=== PATIENT | male | born 1995 | race Two or more races ===

== ENCOUNTER 2019-04-01 17:49 | Emergency (ER) | payer MEDICAID ==
[~2019-04-01] VITALS: Ht 190.5 cm; Wt 90.7 kg
--- NOTE | 2019-04-01 18:04 | NUR ---
ED Nurse Note: PT WALKED IN TO ER TODAY FROM HOME. AOX4. PT C/O ABDOMINAL "DISCOMFORT" AND NAUSEA X 1 WEEK AGO AND STATES HE IS UNABLE TO EAT OR DRINK DUE TO DISCOMFORT. PT ALSO STATES HE FEELS "CONFUSED" ALMOST LIKE HE IS "OUTSIDE OF HIS BODY." PT DENIES ALCOHOL OR DRUG USE. PT DENIES PAIN, VOMITING OR DIARRHEA. ACTIVE BOWEL SOUNDS IN ALL QUADRANTS. ABDOMEN NONDISTENDED AND NONTENDER TO PALPATION. LAST BM X 2 DAYS AGO.
[2019-04-01] MEDS ORDERED: Isovue-300 100ml vial INJ PRN (18:15)
[2019-04-01] MEDS ORDERED: Pantoprazole Inj IV ONE (18:15)
[2019-04-01 18:16] VITALS: BP 134/72
--- NOTE | 2019-04-01 18:24 | Emergency Room Report ---
History of Present Illness General Chief Complaint: Abdominal Pain Source: Patient Present Illness HPI Patient presents emergency department today complaining of abdominal pain that is been going on for several days. Patient states that he was seen at [facility] emergency department where he had laboratory work-up was told everything was fine except that his heart rate was low he was discharged. He does not know what diagnosis he was given. He was referred for outpatient ultrasound by his primary care physician. He states that he is not getting that ultrasound in his abdomen for at least 3 days. Because of the persistence of the pain he cannot tolerate anymore. He came here for further evaluation. Patient had episodes of nausea vomiting states that he is unable to tolerate any p.o. States that whenever he eats or drinks he has significant abdominal discomfort. Denies any dysuria urinary frequency. States that he is also constipated. No other complaints are noted. Symptoms noted to be moderate to severe. Patient is never had episodes of this before. Denies any alcohol drug or tobacco use. No other modifying factors. No other associated signs and symptoms. No other complaints were noted. Allergies: Coded Allergies: No Known Allergies (Unverified , 04/01/19) Patient History Past Medical History: none Past Surgical History: none Pertinent Family History: none Social History: Denies: smoking, alcohol use, drug use Reviewed Nursing Documentation: PMH: Agreed; PSxH: Agreed Nursing Documentation-PMH Past Medical History: No Stated History Review of Systems All Other Systems: negative except mentioned in HPI Physical Exam Vital Signs Date Time Temp Pulse Resp B/P (MAP) Pulse Ox O2 Delivery O2 Flow Rate FiO2 04/01/19 17:57 98.4 87 18 97 Room Air 04/01/19 18:16 134/72 Sp02 EP Interpretation: reviewed, normal General Appearance: normal inspection, well appearing, no apparent distress, alert Head: atraumatic Eyes: bilateral eye normal inspection ENT: normal ENT inspection, hearing grossly normal, normal voice Neck: normal inspection, full range of motion, supple, no bony tend Respiratory: normal inspection, lungs clear, normal breath sounds, no respiratory distress, no retraction, no wheezing Cardiovascular #1: regular rate, rhythm, no edema Gastrointestinal: normal inspection, normal bowel sounds, soft, no guarding, no hernia, tenderness - Epigastrium Genitourinary: no CVA tenderness Musculoskeletal: normal inspection, back normal, normal range of motion Neurologic: normal inspection, alert, responsive, speech normal Psychiatric: normal inspection, judgement/insight normal, mood/affect normal Skin: normal inspection, normal color, no rash Medical Decision Making Diagnostic Impression: Primary Impression: Abdominal pain Additional Impressions: Gastritis Dehydration ER Course Patient presents to the emergency department today complaining of abdominal pain. Differential considerations include acute pancreatitis, cholecystitis, gastritis, hepatitis, appendicitis just to name a few. Given the severity of the patient's presentation I felt this is a highly complex patient. This patient required extensive workup. Patient's laboratory work-up was not impressive except for positive ketones.. This is consistent with dehydration. Patient was started on fluid bolus. Patient felt better after receiving fluid bolus nausea medications. CT scan was obtained which shows evidence of mild hepatosplenomegaly. Patient was informed of this and advised to follow-up with outpatient entry level account representative. Will provide patient with prescription for proton pump inhibitors and H2 blockers. Will provide prescription for nausea. Recommend plenty of fluids. Close follow-up. Patient is advised to follow up with primary doctor in 2-3 days and return the emergency room for any worsening symptoms and as needed. Labs Test 04/01/19 18:30 White Blood Count 7.7 K/UL (4.8-10.8) Red Blood Count 4.79 M/UL (4.70-6.10) Hemoglobin 14.8 G/DL (14.2-18.0) Hematocrit 41.3 % (42.0-52.0) Mean Corpuscular Volume 86 FL (80-99) Mean Corpuscular Hemoglobin 30.9 PG (27.0-31.0) Mean Corpuscular Hemoglobin Concent 35.9 G/DL (32.0-36.0) Red Cell Distribution Width 10.3 % (11.6-14.8) Platelet Count 209 K/UL (150-450) Mean Platelet Volume 6.2 FL (6.5-10.1) Neutrophils (%) (Auto) 66.6 % (45.0-75.0) Lymphocytes (%) (Auto) 23.5 % (20.0-45.0) Monocytes (%) (Auto) 8.3 % (1.0-10.0) Eosinophils (%) (Auto) 0.5 % (0.0-3.0) Basophils (%) (Auto) 1.1 % (0.0-2.0) Urine Color Pale yellow Urine Appearance Clear Urine pH 6 (4.5-8.0) Urine Specific [place] 1.010 (1.005-1.035) Urine Protein Negative (NEGATIVE) Urine Glucose (UA) Negative (NEGATIVE) Urine Ketones 3+ (NEGATIVE) Urine Blood Negative (NEGATIVE) Urine Nitrite Negative (NEGATIVE) Urine Bilirubin Negative (NEGATIVE) Urine Urobilinogen Normal MG/DL (0.0-1.0) Urine Leukocyte Esterase Negative (NEGATIVE) Sodium Level 138 MMOL/L (136-145) Potassium Level 3.6 MMOL/L (3.5-5.1) Chloride Level 101 MMOL/L (98-107) Carbon Dioxide Level 28 MMOL/L (21-32) Anion Gap 9 mmol/L (5-15) Blood Urea Nitrogen 13 mg/dL (7-18) Creatinine 1.1 MG/DL (0.55-1.30) Estimat Glomerular Filtration Rate > 60 mL/min (>60) Glucose Level 93 MG/DL (74-106) Calcium Level 9.4 MG/DL (8.5-10.1) Total Bilirubin 1.2 MG/DL (0.2-1.0) Direct Bilirubin 0.2 MG/DL (0.0-0.3) Aspartate Amino Transf (AST/SGOT) 13 U/L (15-37) Alanine Aminotransferase (ALT/SGPT) 20 U/L (12-78) Alkaline Phosphatase 54 U/L (46-116) Troponin I 0.003 ng/mL (0.000-0.056) Total Protein 8.0 G/DL (6.4-8.2) Albumin 4.4 G/DL (3.4-5.0) Globulin 3.6 g/dL Albumin/Globulin Ratio 1.2 (1.0-2.7) Lipase 60 U/L (73-393) EKG Diagnostic Results Rate: normal Rhythm: NSR ST Segments: no acute changes Rhythm Strip Diag. Results EP Interpretation: yes Rate: 60 Rhythm: NSR, no PVC's, no ectopy CT/MRI/US Diagnostic Results CT/MRI/US Diagnostic Results : Imaging Test Ordered: CT abdomen pelvis: Negative Last Vital Signs Date Time Temp Pulse Resp B/P (MAP) Pulse Ox O2 Delivery O2 Flow Rate FiO2 04/01/19 18:16 98.2 60 18 134/72 98 Room Air Status: improved Disposition: HOME, SELF-CARE Condition: Stable Scripts No Active Prescriptions or Reported Meds Thierno Lau MD April 01, 2019 18:24
[2019-04-01] MEDS: Morphine Sulfate 4mg/ml Inj (IV USE ONLY) IVP ONE ×2 (18:26→18:34)
[2019-04-01 18:58] LABS: APPEARANCE,URINE CLEAR; BASOPHILS % (AUTO) 1.1 % (0.0-2.0); BILIRUBIN, URINE NEGATIVE (NEGATIVE); COLOR,URINE PALE YELLOW; EOSINOPHILS % (AUTO) 0.5 % (0.0-3.0); GLUCOSE, URINE (UA) NEGATIVE (NEGATIVE); HEMATOCRIT 41.3 % (42.0-52.0); HEMOGLOBIN 14.8 G/DL (14.2-18.0); KETONES,URINE 3+ (NEGATIVE); LEUKOCYTE ESTERASE ,URINE NEGATIVE (NEGATIVE); LYMPHOCYTES % (AUTO) 23.5 % (20.0-45.0); MEAN CORPUSCULAR VOLUME 86 FL (80-99); MONOCYTES % (AUTO) 8.3 % (1.0-10.0); NEUTROPHILS % (AUTO) 66.6 % (45.0-75.0); NITRITE,URINE NEGATIVE (NEGATIVE); PH,URINE 6 (4.5-8.0); PLATELET COUNT 209 K/UL (150-450); PROTEIN,URINE NEGATIVE (NEGATIVE); RED BLOOD COUNT 4.79 M/UL (4.70-6.10); RED CELL DISTRIBUTION WIDTH 10.3 % (11.6-14.8); UROBILINOGEN,URINE NORMAL MG/DL (0.0-1.0); WHITE BLOOD COUNT 7.7 K/UL (4.8-10.8)
[2019-04-01 19:08] LABS: ANION GAP 9 mmol/L (5-15); BLOOD UREA NITROGEN 13 mg/dL (7-18); CALCIUM 9.4 MG/DL (8.5-10.1); CARBON DIOXIDE 28 MMOL/L (21-32); CHLORIDE 101 MMOL/L (98-107); CREATININE 1.1 MG/DL (0.55-1.30); POTASSIUM 3.6 MMOL/L (3.5-5.1); SODIUM 138 MMOL/L (136-145)
--- NOTE | 2019-04-01 19:16 | NUR ---
HAND-OFF: REPORT GIVEN TO SHERRI MERRITT.
[2019-04-01 19:18] LABS: ALANINE AMINOTRANSFERASE 20 U/L (12-78); ALBUMIN 4.4 G/DL (3.4-5.0); ALBUMIN/GLOBULIN RATIO 1.2 (1.0-2.7); ALKALINE PHOSPHATASE 54 U/L (46-116); ASPARTATE AMINO TRANSFERASE 13 U/L (15-37); BILIRUBIN,TOTAL 1.2 MG/DL (0.2-1.0)
--- NOTE | 2019-04-01 19:21 | NUR ---
ED Nurse Note: Received report from Roxie POLANCO. Pt on gurmary grace, AAOx4, ambulatory, c/o disconfort in the abdomen. Denies pain at this time. IVF running at pescribed rate. Awaiting CT. Will continue to monitor.
[2019-04-01 19:33] LABS: BILIRUBIN,DIRECT 0.2 MG/DL (0.0-0.3)
[2019-04-01 20:30] VITALS: BP 122/71
[2019-04-01] MEDS ORDERED: ZOFRAN4 MG ORAL (20:40)
[2019-04-01] MEDS ORDERED: OMEPRAZOLE40 M1 ORAL (20:40)
[2019-04-01] MEDS ORDERED: PEPCID AC20 M2 PO (20:40)
[2019-04-01 20:54] VITALS: BP 122/71
--- NOTE | 2019-04-01 21:27 | NUR ---
ED Nurse Note: Pt cleared by health care Provider for discharge. DC instructions/prescription was given and explained to pt and verbalized understanding of teachings. All medical deviecs such as ID band removed. Pt is AAO x4, ambulatory and left with all personal belongings.
--- NOTE | 2019-04-02 10:20 | Diagnostic Imaging Report ---
Indication: Abdominal pain Technique: Continuous helical transaxial imaging of the abdomen and pelvis was obtained from the lung bases to the pubic symphysis during intravenous contrast administration. Coronal 2-D reformats were also obtained. Study obtained in a Siemens sensation [address] Automatic Exposure Control was utilized. Total Dose length Product (DLP): 738.[address] Dose Index Volume (CTDIvol): 13.01 mGy Comparison: None Findings: The liver and spleen are unremarkable. There is no free fluid. Appendix is not seen. There are no secondary signs of acute appendicitis. No free air, free fluid or evidence of bowel obstruction. Urinary bladder is unremarkable. There is no hydronephrosis. The lung bases are clear IMPRESSION: No acute findings. [facility] has communicated the preliminary results to the Emergency Department. Their findings are largely concordant with this report. The CT scanner at [facility] is accredited by the [employer] and the scans are performed using dose optimization techniques as appropriate to a performed exam including Automatic Exposure control.
--- NOTE | 2019-04-02 14:23 | Cardiology Report ---
APPROVED REPORT EKG Measurement Heart [id number] [id number] Normal sinus rhythm Rightward axis Nonspecific ST abnormality Abnormal ECG
== END 2019-04-01 21:28 | disposition home or self-care (01) ==
LOC: EMR 18:05
DX: K29.70 Gastritis, unspecified, without bleeding (principal); E86.0 Dehydration
CPT/HCPCS: 36415; 74177; 80053; 81003; 82248; 83690; 84484; 85025; 93005; 96361; 96374; 96375; 99284; C9113; J2405; Q9967

== ENCOUNTER 2019-04-04 18:39 | Emergency (ER) | payer MEDICAID ==
[~2019-04-04] VITALS: Ht 190.5 cm; Wt 90.7 kg
[~2019-04-04 18:39] MED LIST: OMEPRAZOLE40 M1 ORAL; PEPCID AC20 M2 PO; ZOFRAN4 MG ORAL
[2019-04-04 19:07] VITALS: BP_SYST 105; BP_SYST 127; BP_SYST 133; BP_SYST 95; BP_DIAS 58; BP_DIAS 66; BP_DIAS 69; BP_DIAS 72
--- NOTE | 2019-04-04 19:11 | NUR ---
ED Nurse Note: Patient walked in to ER from home c/o dizziness when stands up. pt aao x4 and ambulatory. skin clean and intact but pale. orthostatic vital signs were assessed and documented. calm and cooperative.
--- NOTE | 2019-04-04 19:16 | Emergency Room Report ---
History of Present Illness General Chief Complaint: Dizziness Source: Patient Present Illness HPI 23 YO Male presents to the ED for C/O intermittent dizziness,palpitations, near syncope, this is the 5th ED visit this week. Denies drug use. denies previous medical hx. reports severe nausea unable to eat, after several bites abdominal pain and increased symptoms. Does not have a PCP. Denies fevers, reports chills. reports weight loss due to inability to eat. denies familial cardiac or neoplastic hx. denies diarrhea. Denies blood in the stool or vomit, no black stools. states symptoms are episodic and last approx 45mins to 1.5 hours. new onset x 2 weeks. Allergies: Coded Allergies: No Known Allergies (Unverified , 04/01/19) Patient History Past Medical History: see triage record Past Surgical History: none Pertinent Family History: none Reviewed Nursing Documentation: PMH: Agreed; PSxH: Agreed Nursing Documentation-PMH Past Medical History: No Stated History Review of Systems All Other Systems: negative except mentioned in HPI Physical Exam Vital Signs Date Time Temp Pulse Resp B/P (MAP) Pulse Ox O2 Delivery O2 Flow Rate FiO2 04/04/19 18:51 98.2 89 16 96 Nasal Cannula 04/04/19 19:07 95/66 133/72 127/69 Sp02 EP Interpretation: reviewed, normal General Appearance: no apparent distress, alert, GCS 15, non-toxic Head: normocephalic, atraumatic Eyes: bilateral eye normal inspection, bilateral eye PERRL ENT: hearing grossly normal, normal voice, moist mucus membranes Neck: full range of motion Respiratory: chest non-tender, lungs clear, normal breath sounds, speaking full sentences Cardiovascular #1: regular rate, rhythm Gastrointestinal: normal bowel sounds, non tender, soft, non-distended, no guarding Rectal: deferred Genitourinary: normal inspection, no CVA tenderness Musculoskeletal: back normal, gait/station normal, normal range of motion, non- tender Neurologic: alert, oriented x3, responsive, motor strength/tone normal, sensory intact, normal gait, speech normal, grossly normal Psychiatric: judgement/insight normal, anxious Skin: normal color, no rash, warm/dry, well hydrated Medical Decision Making PA Attestation Dr. Longoria is my supervising physician whom pt. management has been discussed with. Diagnostic Impression: Primary Impression: Orthostatic hypotension Additional Impression: Hypovolemia ER Course 23 YO Male presents to the ED for C/O intermittent dizziness,palpitations, near syncope, this is the 5th ED visit this week. Denies drug use. denies previous medical hx. reports severe nausea unable to eat, after several bites abdominal pain and increased symptoms. Does not have a PCP. Denies fevers, reports chills. reports weight loss due to inability to eat. denies familial cardiac or neoplastic hx. denies diarrhea. Denies blood in the stool or vomit, no black stools. states symptoms are episodic and last approx 45mins to 1.5 hours. new onset x 2 weeks. Ddx considered but are not limited to Mnire's, BPPV, labyrinthitis, cerebellar stroke, hypovolemia, cardiac or endocrine cause. Vital signs: are WNL, pt. is afebrile H&PE are most consistent with : Hypovolemia - Orthostatic Positive. No focal deficit to indicate TIA or CVA. No vertical nystagmus. Better after IV fluid. ORDERS: -CT head no contrast- negative for ICH, EDEMA, or mass - EK ED INTERVENTIONS: - 2 liters NS Bolus Pt. reports his symptoms have resolved after IV fluids. DISCHARGE: At this time pt. is stable for d/c to home. Will provide printed patient care instructions, and any necessary prescriptions. Care plan and follow up instructions have been discussed with the patient prior to discharge. Labs Test 04/04/19 20:20 Urine Opiates Screen Negative (NEGATIVE) Urine Barbiturates Screen Negative (NEGATIVE) Phencyclidine (PCP) Screen Negative (NEGATIVE) Urine Amphetamines Screen Negative (NEGATIVE) Urine Benzodiazepines Screen Negative (NEGATIVE) Urine Cocaine Screen Negative (NEGATIVE) Urine Marijuana (THC) Screen Negative (NEGATIVE) EKG Diagnostic Results EP Interpretation: Dr. Longoria Rate: bradycardiac - 60 Rhythm: NSR ST Segments: no acute changes ASA given to the pt in ED: No PA Scribe Text This Interpretation was scribed by ERLINDA Castro. Last Vital Signs Date Time Temp Pulse Resp B/P (MAP) Pulse Ox O2 Delivery O2 Flow Rate FiO2 04/04/19 19:07 98.2 78 16 105/58 96 Room Air Status: improved Disposition: HOME, SELF-CARE Condition: Stable Referrals: [facility] Patient Instructions: Dehydration, Adult, Near-Syncope, [id number], Rehydration, Adult Additional Instructions: Take previously prescribed medications as directed. Further EVALUATION FOR CAUSE OF PERSISTENT DEHYDRATION -- despite multiple liters or IV fluids x 1 week. Follow up with a Primary Care Provider in 3-5 days, even if your symptoms have resolved. * You may require an Administrative Medical Director Evaluation as well* --Please review list of primary care clinics, if you do not already have a primary care provider Return sooner to ED if new symptoms occur, or current symptoms become worse. - Please note that this Emergency Department Report was dictated using [employer] and buildings decorator technology software, occasionally this can lead to erroneous entry secondary to interpretation by the dictation equipment. Doris Castro April 04, 2019 19:16
[2019-04-04 20:17] VITALS: BP_SYST 106; BP_SYST 132; BP_SYST 141; BP_DIAS 63; BP_DIAS 66; BP_DIAS 68
[2019-04-04 22:00] VITALS: BP 129/74
--- NOTE | 2019-04-04 22:00 | NUR ---
ER DISCHARGE NOTE: Patient is cleared to be discharged per ERPA, pt is aox4, accompanied by significant other, on room air, with stable vital signs. pt was given dc and prescription instructions, pt was able to verbalize understanding, pt id band and iv site removed without complications. pt is able to ambulate with steady gait. pt took all belongings.
--- NOTE | 2019-04-05 10:11 | Diagnostic Imaging Report ---
Indication: Headache Technique: Contiguous 5 mm thick transaxial imaging of the head obtained in a Siemens Sensation [address] scanner. Soft tissue and bone windows generated. Automatic Exposure Control was utilized. Total Dose length Product (DLP): 1481.[address] Dose Index Volume (CTDIvol): 70.38 mGy Comparison: none Findings: The size and configuration of the cortical sulci, basal cisterns, and ventricles are within normal limits for age. There is no mass effect, midline shift, or edema identified. There is no evidence of acute hemorrhage or abnormal intra-axial or extra-axial fluid collections. The bones and soft tissues are unremarkable. Impression: No mass effect, edema or acute bleed. [facility] has communicated the preliminary results to the Emergency Department. Their findings are largely concordant with this report. The CT scanner at [facility] is accredited by the [employer] and the scans are performed using dose optimization techniques as appropriate to a performed exam including Automatic Exposure control.
[2019-04-05] MEDS ORDERED: NKM (19:15)
[2019-04-05] MEDS ORDERED: TYLENOL EXTRA500 MG ORAL (21:20)
[2019-04-05] MEDS ORDERED: REGLAN10 MG ORAL (21:20)
== END 2019-04-04 22:00 | disposition home or self-care (01) ==
LOC: EMR 19:27
DX: I95.1 Orthostatic hypotension (principal); E86.1 Hypovolemia; R55 Syncope and collapse
CPT/HCPCS: 70450; 80307; 82962; 93005; 96360; 96361; 99284

== ENCOUNTER 2019-04-05 19:03 | Emergency (ER) | payer MEDICAID ==
[~2019-04-05] VITALS: Ht 190.5 cm; Wt 88.5 kg
[2019-04-05] MEDS ORDERED: NKM (19:15)
[2019-04-05 19:19] VITALS: BP 116/80
--- NOTE | 2019-04-05 19:23 | NUR ---
Patient walked into ER c/o "dehydration" states that he feels weak, dizzy. States that everytime he stands up he feels like he is going to pass over. AAO x4, VSS at this time, skin is dry, intact, warm to touch.
--- NOTE | 2019-04-05 19:25 | NUR ---
ED Nurse Note: Patient states that he was here at [facility] yesterday, and got hydration.
[2019-04-05] MEDS ORDERED: Metoclopramide 10mg/2ml Inj IVP ONE (20:00)
[2019-04-05] MEDS ORDERED: Ketorolac 30mg Inj IV ONE (20:00)
[2019-04-05 20:30] LABS: ANION GAP 8 mmol/L (5-15); BLOOD UREA NITROGEN 9 mg/dL (7-18); CALCIUM 9.7 MG/DL (8.5-10.1); CARBON DIOXIDE 29 MMOL/L (21-32); CHLORIDE 104 MMOL/L (98-107); CREATININE 1.1 MG/DL (0.55-1.30); POTASSIUM 3.5 MMOL/L (3.5-5.1); SODIUM 141 MMOL/L (136-145)
[2019-04-05 20:43] LABS: ALANINE AMINOTRANSFERASE 17 U/L (12-78); ALBUMIN 4.5 G/DL (3.4-5.0); ALBUMIN/GLOBULIN RATIO 1.2 (1.0-2.7); ALKALINE PHOSPHATASE 52 U/L (46-116); ASPARTATE AMINO TRANSFERASE 11 U/L (15-37)
[2019-04-05 20:47] LABS: APPEARANCE,URINE CLEAR; BILIRUBIN, URINE NEGATIVE (NEGATIVE); COLOR,URINE PALE YELLOW; GLUCOSE, URINE (UA) NEGATIVE (NEGATIVE); KETONES,URINE 3+ (NEGATIVE); LEUKOCYTE ESTERASE ,URINE NEGATIVE (NEGATIVE); NITRITE,URINE NEGATIVE (NEGATIVE); PH,URINE 8 (4.5-8.0); PROTEIN,URINE NEGATIVE (NEGATIVE); UROBILINOGEN,URINE NORMAL MG/DL (0.0-1.0)
[2019-04-05 20:49] LABS: BASOPHILS % (AUTO) 1.5 % (0.0-2.0); EOSINOPHILS % (AUTO) 0.7 % (0.0-3.0); HEMATOCRIT 41.7 % (42.0-52.0); LYMPHOCYTES % (AUTO) 22.3 % (20.0-45.0); MEAN CORPUSCULAR VOLUME 86 FL (80-99); MONOCYTES % (AUTO) 9.9 % (1.0-10.0); NEUTROPHILS % (AUTO) 65.6 % (45.0-75.0); PLATELET COUNT 205 K/UL (150-450); RED BLOOD COUNT 4.86 M/UL (4.70-6.10); RED CELL DISTRIBUTION WIDTH 10.1 % (11.6-14.8); WHITE BLOOD COUNT 7.5 K/UL (4.8-10.8)
[2019-04-05] MEDS ORDERED: TYLENOL EXTRA500 MG ORAL (21:20)
[2019-04-05] MEDS ORDERED: REGLAN10 MG ORAL (21:20)
[2019-04-05 21:30] VITALS: BP 116/80
--- NOTE | 2019-04-05 21:30 | NUR ---
ER DISCHARGE NOTE: Patient is cleared to be discharged per ERMD, pt is aox4, on room air, with stable vital signs. pt was given dc and prescription instructions, pt was able to verbalize understanding, pt id band and iv site removed without complications. pt is able to ambulate with steady gait. pt took all belongings.
--- NOTE | 2019-04-05 22:11 | Emergency Room Report ---
History of Present Illness General Chief Complaint: General Complaint Source: Patient Present Illness HPI 23-year-old male presents ED for evaluation. Complaining of dizziness and throbbing headache. States that he's been drinking excessive amounts of water. Feels he may be dehydrated. Pain is pressure, 5 out of 10, nonradiating. Denies photophobia or blurry vision. Denies nausea or vomiting. States he's been here several times in the past week for similar presentation. Denies alcohol or drug use. No other aggravating relieving factors. Denies any other associated symptoms Allergies: Coded Allergies: No Known Allergies (Unverified , 04/01/19) Patient History Past Medical History: none Past Surgical History: none Pertinent Family History: none Social History: Denies: smoking, alcohol use, drug use Immunizations: UTD Reviewed Nursing Documentation: PMH: Agreed; PSxH: Agreed Nursing Documentation-PMH Past Medical History: No Stated History Review of Systems All Other Systems: negative except mentioned in HPI Physical Exam Vital Signs Date Time Temp Pulse Resp B/P (MAP) Pulse Ox O2 Delivery O2 Flow Rate FiO2 04/05/19 19:09 99.0 91 18 96 Room Air 04/05/19 19:19 116/80 Sp02 EP Interpretation: reviewed, normal General Appearance: no apparent distress, alert, GCS 15, non-toxic Head: normocephalic, atraumatic Eyes: bilateral eye normal inspection, bilateral eye PERRL ENT: hearing grossly normal, normal pharynx, no angioedema, normal voice Neck: full range of motion, supple/symm/no masses Respiratory: chest non-tender, lungs clear, normal breath sounds, speaking full sentences Cardiovascular #1: regular rate, rhythm, no edema Cardiovascular #2: 2+ carotid (R), 2+ carotid (L), 2+ radial (R), 2+ radial (L) , 2+ dorsalis pedis (R), 2+ dorsalis pedis (L) Gastrointestinal: normal bowel sounds, non tender, soft, non-distended, no guarding, no rebound Rectal: deferred Genitourinary: normal inspection, no CVA tenderness Musculoskeletal: back normal, gait/station normal, normal range of motion, non- tender Neurologic: alert, oriented x3, responsive, motor strength/tone normal, sensory intact, speech normal Psychiatric: judgement/insight normal, memory normal, mood/affect normal, no suicidal/homicidal ideation Reflexes: 3+ bicep (R), 3+ bicep (L), 3+ tricep (R), 3+ tricep (L), 3+ knee (R) , 3+ knee (L) Skin: normal color, no rash, warm/dry, well hydrated Lymphatic: no adenopathy Medical Decision Making Diagnostic Impression: Primary Impression: Weakness ER Course Hospital Course 23-year-old male presents complaining of dizziness and weakness with headache Differential diagnoses include: tension headache, migraine, dehydration, intracranial bleed Clinical course Patient placed on stretcher. After initial history and physical I ordered labs , IV fluids, Reglan, Toradol Labs reviewed- electrolytes okay, no leukocytosis, hemoglobin/hematocrit stable , UA negative I reviewed EMR. Patient has been seen here recently for similar presentation. Initial workup included unremarkable labs. Repeat visit patient had CT head and drug screen were both of which were negative Discussed findings with patient. On reassessment he is feeling better. I explained to her no clinical signs of dehydration. No focal neurological deficits. Patient states that he was recently noted to be having acid reflux and has been prescribed medication. States that his appetite has been significantly less since. Also states that he quit smoking recently. I explained that both his reduced appetite as well as sudden cessation of smoking could also be contributing to his symptoms. Patient can be safely discharged at this time however I encourage close follow-up with PMD for any outpatient workup Patient states he has a PMD. agrees to plan. Safe for discharge i. I feel this is a highly complex case requiring extensive working including EKG/Rhythm strip, Xray/CT/US, Blood/urine lab work, repeat exams while in ED, and administration of strong opiates/narcotics for pain control, admission to hospital or close patient follow up. Diagnosis -weakness stable and discharged to home with prescription for reglan, tylenol . f/up with PMD. return to ED if symptoms recur/worsen. Labs Test 04/05/19 20:10 04/05/19 20:40 White Blood Count 7.5 K/UL (4.8-10.8) Red Blood Count 4.86 M/UL (4.70-6.10) Hemoglobin 15.0 G/DL (14.2-18.0) Hematocrit 41.7 % (42.0-52.0) Mean Corpuscular Volume 86 FL (80-99) Mean Corpuscular Hemoglobin 30.9 PG (27.0-31.0) Mean Corpuscular Hemoglobin Concent 36.0 G/DL (32.0-36.0) Red Cell Distribution Width 10.1 % (11.6-14.8) Platelet Count 205 K/UL (150-450) Mean Platelet Volume 6.9 FL (6.5-10.1) Neutrophils (%) (Auto) 65.6 % (45.0-75.0) Lymphocytes (%) (Auto) 22.3 % (20.0-45.0) Monocytes (%) (Auto) 9.9 % (1.0-10.0) Eosinophils (%) (Auto) 0.7 % (0.0-3.0) Basophils (%) (Auto) 1.5 % (0.0-2.0) Sodium Level 141 MMOL/L (136-145) Potassium Level 3.5 MMOL/L (3.5-5.1) Chloride Level 104 MMOL/L (98-107) Carbon Dioxide Level 29 MMOL/L (21-32) Anion Gap 8 mmol/L (5-15) Blood Urea Nitrogen 9 mg/dL (7-18) Creatinine 1.1 MG/DL (0.55-1.30) Estimat Glomerular Filtration Rate > 60 mL/min (>60) Glucose Level 105 MG/DL (74-106) Calcium Level 9.7 MG/DL (8.5-10.1) Total Bilirubin 1.0 MG/DL (0.2-1.0) Aspartate Amino Transf (AST/SGOT) 11 U/L (15-37) Alanine Aminotransferase (ALT/SGPT) 17 U/L (12-78) Alkaline Phosphatase 52 U/L (46-116) Total Protein 8.3 G/DL (6.4-8.2) Albumin 4.5 G/DL (3.4-5.0) Globulin 3.8 g/dL Albumin/Globulin Ratio 1.2 (1.0-2.7) Lipase 91 U/L (73-393) Urine Color Pale yellow Urine Appearance Clear Urine pH 8 (4.5-8.0) Urine Specific [place] 1.010 (1.005-1.035) Urine Protein Negative (NEGATIVE) Urine Glucose (UA) Negative (NEGATIVE) Urine Ketones 3+ (NEGATIVE) Urine Blood Negative (NEGATIVE) Urine Nitrite Negative (NEGATIVE) Urine Bilirubin Negative (NEGATIVE) Urine Urobilinogen Normal MG/DL (0.0-1.0) Urine Leukocyte Esterase Negative (NEGATIVE) Last Vital Signs Date Time Temp Pulse Resp B/P (MAP) Pulse Ox O2 Delivery O2 Flow Rate FiO2 04/05/19 20:46 99.0 04/05/19 19:19 18 116/80 96 Room Air 04/05/19 19:19 91 Status: improved Disposition: HOME, SELF-CARE Condition: Stable Scripts Metoclopramide Hcl* (REGLAN*) 10 Mg Tablet 10 MG ORAL THREE TIMES A DAY for 7 Days, TAB Prov: Ed Dooley MD 04/05/19 Acetaminophen* (TYLENOL EXTRA STRENGTH*) 500 Mg Tablet 500 MG ORAL Q8H PRN for Prn Headache/Temp > 101, #30 TAB 0 Refills Prov: Ed Dooley MD 04/05/19 Referrals: NOT CHOSEN IPA/,REFERRING (PCP) Patient Instructions: Gastroesophageal Reflux Disease, Adult Ed Dooley MD April 05, 2019 22:11
== END 2019-04-05 21:30 | disposition home or self-care (01) ==
LOC: EMR 19:48
DX: R53.1 Weakness (principal); R51 Headache; R42 Dizziness and giddiness; Z87.891 Personal history of nicotine dependence
CPT/HCPCS: 36415; 80053; 81003; 83690; 85025; 96361; 96374; 96375; 99284; J1885; J2765